=== PATIENT | female | born 1995 | race Caucasian/White ===

== ENCOUNTER 2017-02-07 17:23 | Inpatient (IN) ==
[2017-02-07] MEDS ORDERED: Metoclopramide 10 MG/2 ML VIAL IVP ONE (19:12)
[2017-02-07] MEDS ORDERED: 0.9 % Sodium Chloride 1,000 ML IVC ONE ×2 (19:12→21:19)
[2017-02-07] MEDS ORDERED: Ketorolac 15 MG/ML VIAL IVP ONE (19:14)
--- NOTE | 2017-02-07 19:41 | Emergency Department Note ---
Disposition Clinical Impression: Meningitis Headache Qualifiers: Headache type: unspecified Headache chronicity pattern: acute headache Intractability: not intractable Qualified Code(s): R51 - Headache Acute cystitis Qualifiers: Hematuria presence: without hematuria Qualified Code(s): N30.00 - Acute cystitis without hematuria Disposition: Admitted As Inpatient Condition: Fair General Adult HPI - General Chief complaint: ED Headache Stated complaint: DOW,BLISTERS HANDS AND FEET Time Seen by Provider: 02/07/17 18:46 Source: patient Limitations: no limitations Nursing Notes Reviewed: Yes Vital Signs Reviewed: Yes - History of Present Illness HPI Narrative: Patient's 21-year-old female has no visual migraines. She presents to the emergency department after having worsening headaches over the last 2-4 weeks. She states that over the last 2 days, her migraines gotten worse. She describes it the same in quality as it has been in the past and localizes it to them for region. She states that she is also having photophobia. She describes the pain as sharp. She has not taken anything for her symptoms. She is also complaining of some blisters on her palmar surfaces of her hands or feet. 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 Pain Scale: 9 - Related Data Home Medications Medication Instructions Recorded Confirmed No Known Home Drugs 02/07/17 02/07/17 Allergies Allergy/AdvReac Type Severity Reaction Status Date / Time No Known Allergies Allergy Verified 02/07/17 17:32 All systems ED: reviewed and negative except as stated. Constitutional: Denies: fever, chills Eyes: Denies: eye pain, vision change ENT ED: Denies: throat pain Cardiovascular: Denies: chest pain Respiratory: Denies: cough, dyspnea, wheezes Gastrointestinal: Denies: abdominal pain, nausea, vomiting Genitourinary: Denies: urgency, dysuria, frequency Musculoskeletal: Denies: back pain, neck pain Integumentary: Reports: rash Neurological: Reports: headache Past Medical History - Past Medical History Medical history: Reports: diabetes Psychiatric history: Reports: anxiety, depression - Social History Smoking Status: Current every day smoker Smokeless Tobacco Status: No Alcohol use: Reports: none Drug use: Reports: none Physical Exam - General Limitations: no limitations General appearance: alert, other (Patient is a 21-year-old female who appears uncomfortable when laying in the bed.) - Head Head exam: atraumatic, normocephalic - Eye Eye exam: Present: EOMI. Absent: scleral icterus, conjunctival injection - ENT ENT exam: normal oropharynx, mucous membranes moist - Neck Neck exam: Present: trachea midline, tenderness. Absent: meningismus - Chest Chest inspection: Present: normal inspection, symmetric chest wall rise - Respiratory Respiratory exam: Present: wheezes. Absent: respiratory distress - Cardiovascular Cardiovascular exam: Present: regular rate, normal rhythm, normal heart sounds - Abdominal Exam Abdominal exam: Present: soft, Non-Tender. Absent: distention, guarding, rebound, rigidity - Neurological Exam Neurological exam: Present: alert, oriented X3, CN II-XII intact, other ( Negative Brudzinski's) - Psychiatric Psychiatric exam: Present: anxious - Skin Skin exam: Present: warm, dry, intact, rash (Macular rash on the palmar surfaces of the hands and feet. No petechia) Course Course Narrative: This is a 21-year-old male with a past medical history of migraines who presents to the emergency department with 2 day history of a worsening headache as well as complaint of rash on the palmar surfaces of her hands and feet. At this time, my biggest concern for this patient has meningitis as she has a repeat temperature of 100.3 as well as a rash on the palmar surfaces of the hands and feet. The patient has a negative Brudzinski sign, has a migraine different in quality of her normal migraines by being temporal in nature. However, there is some concern that this current migraine is more severe than ones in the past. This time, I will order a CT scan of the head without contrast, provide this patient with a migraine cocktail using Benadryl, Reglan, IV fluids, 15 mg IV Toradol. I will also obtain a CBC, BMP, urinalysis and urine preg. Head CT 02/07/17 19:11 IMPRESSION: No acute intracranial abnormality. D/ / Tino Leon MD / Tino Leon MD Interpreting Provider: Tino Leon MD Vital Signs Temperature 98.8 F 02/07/17 17:29 Pulse Rate 91 02/07/17 17:29 Respiratory Rate 18 02/07/17 17:29 Blood Pressure 134/84 02/07/17 17:29 O2 Sat by Pulse Oximetry 99 02/07/17 17:29 Temperature 100.3 F 02/07/17 20:35 Pulse Rate 79 02/07/17 22:51 Respiratory Rate 16 02/07/17 22:51 Blood Pressure 115/71 02/07/17 22:51 O2 Sat by Pulse Oximetry 100 02/07/17 22:51 Oxygen Delivery Oxygen Delivery Room Air - Reevaluation(s) Reevaluation #1: Patient's head CT was negative. Patient's lumbar puncture came back positive for total nucleated cells with a value of 27 and an elevated protein. At this time, I will admit this patient for meningitis. I suspect it is most likely viral, however I will treat her appropriately for bacterial meningitis pending CSF cultures. Blood cultures have also been obtained. I have given this patient vancomycin and Rocephin. This patient also has a urinary tract infection, but this will be covered by the Rocephin. I have also started acyclovir IV to treat her for viral meningitis as well. I spoken to the hospitalist and he agrees to accept this admission at this time. I have also discussed with the patient and lab results. Her headache is been improved with use of a migraine cocktail as well as Fioricet. Patient is currently hemodynamically stable at this time. Time: 22:30 Vital Signs Temperature 98.8 F 02/07/17 17:29 Pulse Rate 91 02/07/17 17:29 Respiratory Rate 18 02/07/17 17:29 Blood Pressure 134/84 02/07/17 17:29 O2 Sat by Pulse Oximetry 99 02/07/17 17:29 Temperature 100.3 F 02/07/17 20:35 Pulse Rate 79 02/07/17 22:51 Respiratory Rate 16 02/07/17 22:51 Blood Pressure 115/71 02/07/17 22:51 O2 Sat by Pulse Oximetry 100 02/07/17 22:51 Oxygen Delivery Oxygen Delivery Room Air Medical Decision Making - Lab Data Result diagrams: 02/07/17 20:37 02/07/17 20:37 Lab Results 02/07/17 02/07/17 02/07/17 Range/Units 20:34 20:34 20:37 WBC 12.0 H (4.3-11.1) K/mcL RBC 5.01 H (3.82-4.97) M/mcL Hgb 14.7 (11.5-15.4) g/dL Hct 45.2 H (35.3-44.9) % MCV 90.2 (83.0-100.0) fL MCH 29.3 (28.0-33.3) pg MCHC 32.5 (31.6-35.5) g/dL RDW 12.8 (11.5-14.5) % Plt Count 231 (140-400) K/mcL MPV 12.1 (9.4-12.4) fL Immature Gran % 0.4 (0-4) % Seg Neutrophils % 78.0 % Lymphocytes % 14.1 % Monocytes % 5.7 % Eosinophils % 1.5 % Basophils % 0.3 % Neutrophils # 9.4 H (1.6-8.9) K/mcL Lymphocytes # 1.7 (0.6-4.6) K/mcL Monocytes # 0.7 (0.0-1.3) K/mcL Eosinophils # 0.2 (0.0-0.6) K/mcL Basophils # 0.0 (0.0-0.2) K/mcL Sodium (136-145) mEq/L Potassium (3.5-4.5) mEq/L Chloride (98-109) mEq/L Carbon Dioxide (19-29) mEq/L BUN (7-20) mg/dL Creatinine (0.57-1.11) mg/dL Est GFR ( Amer) (> 60) Est GFR (Non-Af Amer) (> 60) BUN/Creatinine Ratio (6-26) Glucose (70-99) mg/dL Calculated Osmolality (280-300) Calcium (8.6-10.8) mg/dL Urine Color Yellow (Yellow) Urine Clarity Cloudy A (Clear) Urine pH 7.0 (5.0-8.0) pH Units Ur Specific [place] 1.026 H (1.010-1.025) Urine Protein Negative (Neg-Trace) mg/dL Urine Glucose (UA) Normal (Normal) mg/dL Urine Ketones Negative (Negative) mg/dL Urine Blood Negative (Negative) Urine Nitrite Positive A (Negative) Urine Bilirubin Negative (Negative) Urine Urobilinogen Normal (Normal) mg/dL Ur Leukocyte Esterase Moderate H (Negative) Urine Microscopic RBC 5-15 H (0-3) per hpf Urine Microscopic WBC 5-15 H (0-3) per hpf Ur Squamous Epith Cells Many H (None-Few) per lpf Ur Renal Epithelial Cell Few (None-Few) per hpf Urine Bacteria Many H (None-Few) per hpf Hyaline Casts Few (None-Few) per lpf Ur Culture Indicated? YES A (NO) Urine Test Negative (Negative) CSF Volume mL CSF Appearance (Clear) CSF Color (Colorless) CSF RBC (0.000 - 0.002) M/mcL CSF Tot Nucleated Cells (0-5) TNC/mcL CSF Seg Neutrophils % CSF Band Neutrophils % CSF Lymphocytes % % CSF Monocytes % % CSF Eosinophils % CSF Basophils % CSF Other Cells % CSF Glucose (40-70) mg/dL CSF Xanth Comm (Not Observe) CSF Total Protein (15-45) mg/dL 02/07/17 02/07/17 Range/Units 20:37 21:04 WBC (4.3-11.1) K/mcL RBC (3.82-4.97) M/mcL Hgb (11.5-15.4) g/dL Hct (35.3-44.9) % MCV (83.0-100.0) fL MCH (28.0-33.3) pg MCHC (31.6-35.5) g/dL RDW (11.5-14.5) % Plt Count (140-400) K/mcL MPV (9.4-12.4) fL Immature Gran % (0-4) % Seg Neutrophils % % Lymphocytes % % Monocytes % % Eosinophils % % Basophils % % Neutrophils # (1.6-8.9) K/mcL Lymphocytes # (0.6-4.6) K/mcL Monocytes # (0.0-1.3) K/mcL Eosinophils # (0.0-0.6) K/mcL Basophils # (0.0-0.2) K/mcL Sodium 137 (136-145) mEq/L Potassium 3.9 (3.5-4.5) mEq/L Chloride 101 (98-109) mEq/L Carbon Dioxide 22 (19-29) mEq/L BUN 12 (7-20) mg/dL Creatinine 0.79 (0.57-1.11) mg/dL Est GFR ( Amer) > 60 (> 60) Est GFR (Non-Af Amer) > 60 (> 60) BUN/Creatinine Ratio 15 (6-26) Glucose 76 (70-99) mg/dL Calculated Osmolality 283 (280-300) Calcium 10.4 (8.6-10.8) mg/dL Urine Color (Yellow) Urine Clarity (Clear) Urine pH (5.0-8.0) pH Units Ur Specific [place] (1.010-1.025) Urine Protein (Neg-Trace) mg/dL Urine Glucose (UA) (Normal) mg/dL Urine Ketones (Negative) mg/dL Urine Blood (Negative) Urine Nitrite (Negative) Urine Bilirubin (Negative) Urine Urobilinogen (Normal) mg/dL Ur Leukocyte Esterase (Negative) Urine Microscopic RBC (0-3) per hpf Urine Microscopic WBC (0-3) per hpf Ur Squamous Epith Cells (None-Few) per lpf Ur Renal Epithelial Cell (None-Few) per hpf Urine Bacteria (None-Few) per hpf Hyaline Casts (None-Few) per lpf Ur Culture Indicated? (NO) Urine Test (Negative) CSF Volume 6.0 mL CSF Appearance Clear (Clear) CSF Color Colorless (Colorless) CSF RBC < 0.002 (0.000 - 0.002) M/mcL CSF Tot Nucleated Cells 27 H* (0-5) TNC/mcL CSF Seg Neutrophils 12.0 % CSF Band Neutrophils % Test Not Performed CSF Lymphocytes % 76.0 % CSF Monocytes % 12.0 % CSF Eosinophils % Test Not Performed CSF Basophils % Test Not Performed CSF Other Cells % Test Not Performed CSF Glucose 52 (40-70) mg/dL CSF Xanth Comm Not Observed (Not Observe) CSF Total Protein 53 H (15-45) mg/dL Critical Care Time Critical Care Time: Yes Total Critical Care Time: 40 Attestation: Critical care performed: Time is exclusive of separately billable procedures. Time includes: direct patient care, patient reassessment, coordination of patient care, interpretation of data (laboratory data, radiology data, and respiratory data), review of patient's medical records, medical consultation and documentation of patient care. Procedures included in critical care time: Procedures excluded from critical care time: Lumbar puncture Attestation Statement - Attestation Attestation: I, Joaquín Back MD, personally evaluated this patient and discussed their management with the resident physician. I reviewed the resident's note and agree with the documented findings, medical decision making, and plan of care. 21-year-old female presents to the emergency department with a complaint of severe headache which started earlier today. She states it started in the back of her head and then moved to the front bilaterally. Now it is mostly in the top of the head and forehead and down into the face bilaterally. She does complain of photophobia. She complains of nausea but no vomiting. She does have a history of migraine headaches but states she has never had a headache this bad and that this is different from her migraines. No definite fever but she states that she has had chills. She also complains of a rash on her palms and soles that started about 2 days ago. The rash is painful. No known exposure. No cough or chest pain or shortness of breath. No stiff neck. No blurred vision or double vision. No difficulty with speech or swallowing or balance. No cough or chest pain or shortness of breath. No abdominal pain. On examination patient is a well-developed obese young female in no acute distress. She is alert and oriented 3 no cyanosis or diaphoresis. HEENT normal. Neck supple and nontender with no lymphadenopathy and no meningismus. Touches chin to chest without discomfort. Breath sounds are clear and equal bilaterally. Heart regular with a mild tachycardia. Abdomen is soft and nontender with normal bowel sounds. No gross focal neurological deficits. Patient does have a tender erythematous macular rash on the palms and soles. No petechial rash. No blisters or vesicles. Labs reviewed. Patient does have a UTI. Head CT negative. Lumbar puncture was performed by Dr. Mantilla under my direct supervision. Spinal fluid was positive with 27 wbc's. 76% lymphocytes, 12% monocytes, 12% segs. Patient likely has a viral meningitis. The rash on her palms and soles appears viral. IV antibiotics and antiviral initiated and patient will be admitted to the hospital until CSF cultures return. The hospitalist, Dr. Gomez, was consulted and accepted admission of the patient.
[2017-02-07 20:45] LABS: Basophils % 0.3 %; Eosinophils # 0.2 K/mcL (0.0-0.6); Eosinophils % 1.5 %; Hematocrit 45.2 % (35.3-44.9); Hemoglobin 14.7 g/dL (11.5-15.4); Immature Granulocytes % 0.4 % (0-4); Lymphocytes # 1.7 K/mcL (0.6-4.6); Lymphocytes % 14.1 %; Mean Corpuscular HGB Conc 32.5 g/dL (31.6-35.5); Mean Corpuscular Hemoglobin 29.3 pg (28.0-33.3); Mean Corpuscular Volume 90.2 fL (83.0-100.0); Mean Platelet Volume 12.1 fL (9.4-12.4); Monocytes # 0.7 K/mcL (0.0-1.3); Monocytes % 5.7 %; Neutrophils # 9.4 K/mcL (1.6-8.9); Platelet Count 231 K/mcL (140-400); Red Blood Count 5.01 M/mcL (3.82-4.97); Red Cell Distribution Width 12.8 % (11.5-14.5)
[2017-02-07 20:46] LABS: Bilirubin,Urine Negative (Negative); Blood,Urine Negative (Negative); Clarity,Urine Cloudy (Clear); Color,Urine Yellow (Yellow); Glucose,Urine (UA) Normal (Normal); Ketones,Urine Negative (Negative); Leukocyte Esterase,Urine Moderate (Negative); Nitrite,Urine Positive (Negative); Protein,Urine Negative (Neg-Trace); Specific Gravity,Urine 1.026 (1.010-1.025); Urobilinogen,Urine Normal (Normal)
[2017-02-07 20:47] LABS: Bacteria,Urine Many per hpf (None-Few); Squamous Epithelial Cell,Urine Many per lpf (None-Few)
[2017-02-07 20:58] LABS: BUN/Creatinine Ratio 15 (6-26); Blood Urea Nitrogen 12 mg/dL (7-20); Calcium 10.4 mg/dL (8.6-10.8); Carbon Dioxide 22 mEq/L (19-29); Chloride 101 mEq/L (98-109); Glucose 76 mg/dL (70-99); Osmolality,Calculated 283 (280-300); Sodium 137 mEq/L (136-145); eGFR For African Americans > 60 (> 60); eGFR For Non-African Americans > 60 (> 60)
[2017-02-07 21:00] LABS: Potassium 3.9 mEq/L (3.5-4.5)
[2017-02-07] MEDS ORDERED: Acetaminophen/Butalbital/CaffeineTABLET PO ONE (21:15)
[2017-02-07 21:16] LABS: Hyaline Casts,Urine Few per lpf (None-Few); Renal Epithelial Cells,Urine Few per hpf (None-Few)
[2017-02-07 21:55] LABS: Glucose,CSF 52 mg/dL (40-70); Total Protein,CSF 53 mg/dL (15-45)
[2017-02-07 21:58] LABS: Red Blood Cell,CSF < 0.002 M/mcL
[2017-02-07] MEDS ORDERED: Acyclovir 500 MG in D5% in Water 100 ML IVPB ONE (22:18)
[2017-02-07 22:24] LABS: Appearance,CSF Clear (Clear)
[2017-02-07] MEDS ORDERED: Vancomycin 2,000 MG in D5% in Water 500 ML IVPB SCH (23:00)
[2017-02-08] MEDS: Vancomycin 1,500 MG in D5% in Water 250 ML IVPB SCH ×2 (00:14→07:36)
[2017-02-08] MEDS ORDERED: Ibuprofen 400 MG TABLET PO PRN (01:02)
[2017-02-08] MEDS ORDERED: Naloxone 0.4 MG/ML INJ IVP PRN (01:02)
[2017-02-08] MEDS ORDERED: Ondansetron 4 MG/2 ML VIAL IVP PRN (01:02)
--- NOTE | 2017-02-08 01:21 | Internal Med History&Physical ---
Date of Encounter: 02/08/17 Time of Encounter: 00:45 Assessment and Plan (1) Meningitis Current visit: Yes Status: Acute 1. Will continue Vancomycin, high dose Rocephin, and IV Acyclovir. 2. Will send CSF for HSV PCR, Enterovirus PCR, and follow bacterial culture. 3. I suspect this is viral meningitis but will continue antibiotics until culture results available. (2) Acute cystitis Current visit: Yes Status: Acute 1. Will follow urine culture. 2. Continue antibiotics as above and adjust as needed. 3. IVF hydration. Qualifiers: Hematuria presence: without hematuria Qualified Code(s): N30.00 - Acute cystitis without hematuria (3) DVT prophylaxis Current visit: Yes Status: Acute 1. Heparin SQ. Internal Medicine - H&P: HPI Chief complaint: headache, neck pain, fever Admitted From: Emergency Dept Plans for Post Hospital Care: Home History of present illness: Ms. Metz is a year old female who has been battling a headache for last 2-3 days. She usually has migraine headaches a few times per month. She developed a headache the other day and thought it was a typical migraine. However, as the next 24-48 hours progressed, her headache became more severe and included neck pain and stiffness. She therefore came to the ER where she underwent CT imaging and lumbar puncture suggesting meningitis. She was subsequently admitted to the hospitalist service. Upon my assessment of the patient, she appears stable and in no significant distress. She does complain of mild headache and neck pain, but it is improved. She admits to having had some fevers and chills but no body aches. She denies any diarrhea, but she had some vomiting. She denies any known ill contacts. She denies any history of oral or genital herpes. She denies any mosquito bites, tick bites, or any exotic pet exposure. Past Med Surg Social Fam HX - Past Medical History Attestation: Yes The following information was validated with the patient. Source: patient, old records reviewed Medical history: migraine Psychiatric history: anxiety, depression - Past Surgical History Surgical History: cholecystectomy, other (ureteral re-implantation) - Social History Smoking Status: Current every day smoker Smokeless Tobacco Status: No Alcohol use: none Drug use: none Current living situation: Home Activity Level: Independent ambulation - Family History Mother Living Status: Still Living Hx Family Endocrine Disorder: Yes (diabetes) Father History Unknown: Yes Internal Medicine - H&P: Meds No Known Home Drugs 02/07/17 [History] 3 Allergy/AdvReac Type Severity Reaction Status Date / Time No Known Allergies Allergy Verified 02/07/17 17:32 - Constitutional Constitutional: chills, fever(s), no night sweats - EENT Eyes: photophobia, no change in vision, no decreased night vision Ears: no ear pain, no tinnitus Nose, mouth and throat: no nasal congestion, no sinus pressure, no sore throat - Cardiovascular Cardiovascular ROS IM: no chest pain, no diaphoresis, no dyspnea, no dyspnea on exertion - Respiratory Respiratory: no cough, no hemoptysis, no chest congestion - Gastrointestinal Gastrointestinal: nausea, vomiting, no abdominal pain, no diarrhea - Genitourinary Genitourinary: dysuria, no flank pain, no hematuria - Musculoskeletal Musculoskeletal ROS IM: back pain, neck pain, stiffness, no arthralgias - Integumentary Integumentary IM: rash, no jaundice - Neurological Neurological ROS: headache(s), no disequilibrium, no dizziness, no focal weakness, no weakness - Psychiatric Psychiatric: no anxiety, no depression - Endocrine Endocrine IM: no polydipsia, no polyuria - Hematologic/Lymphatic Hematologic/Lymphatic: no easy bruising, no lymphadenopathy - Allergic/Immunologic Allergic/Immunologic: no wheezing, no GI upset with certain foods - Constitutional Vitals: Temp Pulse Resp BP Pulse Ox 98.4 F 79 17 99/58 100 02/08/17 00:11 02/07/17 22:51 02/07/17 23:49 02/07/17 23:49 02/07/17 22:51 General appearance: Present: cooperative, mild distress, A&O X 3, pleasant, answers questions appropriately - Head Head exam: Present: atraumatic, normal inspection - Expanded Head Exam Head exam expanded: Absent: abrasion, contusion, general tenderness - Eye Eye exam: Present: EOMI, normal appearance, PERRL. Absent: scleral icterus Pupils: Present: normal accommodation - ENT ENT exam: Present: mucous membranes dry, normal exam - Neck Neck exam general surgery: Present: full ROM, tenderness (neck a little stiff but full ROM). Absent: thyromegaly - Respiratory Respiratory exam: Present: CTAB. Absent: chest wall tenderness, rales, respiratory distress, rhonchi, wheezes - Cardiovascular Cardiovascular exam: Present: RRR, +S1, +S2. Absent: diastolic murmur, systolic murmur - GI/Abdominal GI/Abdominal exam: Present: normal bowel sounds, soft. Absent: hepatomegaly, splenomegaly, tenderness - Extremities Exam Extremities exam: Present: full ROM, warm, radial pulses palpable and symmetrical. Absent: calf tenderness, joint swelling, pedal edema - Back Exam Back exam: Present: normal inspection. Absent: CVA tenderness (L), CVA tenderness (R), tenderness - Neurological Exam Neurological exam: Present: alert, CN II-XII intact, oriented X3, no focal deficits, strengths equal and symetr throughout Additional comments: Negative Kernig and Negative Brudzinski signs - Psychiatric Psychiatric exam: Present: normal affect, normal mood - Skin Skin exam: Present: dry, warm Additional comments: subtle macular rash on her extremities; no vesicles Internal Med - H&P Results - Labs CBC & Chem 7: 02/07/17 20:37 02/07/17 20:37 Labs: CSF studies pertinent for total nucleated cells 27, lymphocytes 76%, monocytes 12%, glucose 52, and elevated protein of 53 - Diagnostic Studies CT scan - head Additional comments: Report reviewed -- negative
[2017-02-08 01:28] LABS: Basophils % 0.4 %; Eosinophils # 0.1 K/mcL (0.0-0.6); Hematocrit 34.9 % (35.3-44.9); Immature Granulocytes % 0.2 % (0-4); Lymphocytes # 1.7 K/mcL (0.6-4.6); Lymphocytes % 18.2 %; Mean Corpuscular Hemoglobin 29.5 pg (28.0-33.3); Mean Corpuscular Volume 89.5 fL (83.0-100.0); Mean Platelet Volume 11.2 fL (9.4-12.4); Monocytes # 0.5 K/mcL (0.0-1.3); Monocytes % 5.5 %; Neutrophils # 7.1 K/mcL (1.6-8.9); Platelet Count 222 K/mcL (140-400); Red Cell Distribution Width 12.7 % (11.5-14.5); Segmented Neutrophils % 74.7 %
[2017-02-08 01:29] LABS: Hemoglobin 11.5 g/dL (11.5-15.4)
[2017-02-08 01:38] LABS: Alanine Aminotransferase 8 Units/L (0-55); Albumin 3.1 g/dL (3.5-5.0); Alkaline Phosphatase 61 Units/L (38-126); Aspartate Amino Transferase 11 Units/L (5-34); BUN/Creatinine Ratio 18 (6-26); Bilirubin,Total 0.5 mg/dL (0.2-1.2); Blood Urea Nitrogen 12 mg/dL (7-20); Carbon Dioxide 20 mEq/L (19-29); Chloride 108 mEq/L (98-109); Globulin 3.2 g/dL (2.4-3.5); Glucose 148 mg/dL (70-99); Magnesium 1.8 mg/dL (1.7-2.2); Osmolality,Calculated 287 (280-300); Potassium 3.6 mEq/L (3.5-4.5); Sodium 137 mEq/L (136-145); Total Protein 6.3 g/dL (6.0-8.3); eGFR For African Americans > 60 (> 60); eGFR For Non-African Americans > 60 (> 60)
[2017-02-08 01:39] LABS: Calcium 8.3 mg/dL (8.6-10.8)
[2017-02-08] MEDS ORDERED: Vancomycin 1,500 MG in D5% in Water 250 ML IVPB SCH (02:00)
[2017-02-08] MEDS: 0.9 % Sodium Chloride w KCl 20 MEQ/1,000 ML MLS IVC SCH ×3 (04:05→23:19)
[2017-02-08] MEDS: *HR* Heparin 5,000 UNIT/ML VIAL SQ SCH ×3 (06:15→18:18)
[2017-02-08] MEDS: Acetaminophen/Butalbital/CaffeineTABLET PO PRN ×2 (06:16→14:08)
[2017-02-08] MEDS: Acetaminophen 325 MG TABLET PO PRN ×2 (07:55→20:47)
[2017-02-08] MEDS ORDERED: *HR* HYDROcodone/Acet 5/325 mg TABLET PO PRN (07:58)
[2017-02-08] MEDS ORDERED: ACYCLOVIR IVPB SCH (08:00)
[2017-02-08] MEDS ORDERED: D5 IVPB SCH (08:00)
[2017-02-08] MEDS ORDERED: WATER IVPB SCH (08:00)
--- NOTE | 2017-02-08 08:04 | Internal Med Progress Note ---
Date of Encounter: 02/08/17 Time of Encounter: 08:02 - Assessment and plan (1) Meningitis Current Visit: Yes Status: Acute (2) Acute cystitis Current Visit: Yes Status: Acute Qualifiers: Hematuria presence: without hematuria Qualified Code(s): N30.00 - Acute cystitis without hematuria (3) Hyperglycemia Current Visit: Yes Status: Acute (4) DVT prophylaxis Current Visit: Yes Status: Acute - Subjective Interval history: Ms. Metz is a 21 year old female who has past medical history significant for chronic headaches. She has been battling a headache for last 2-3 days which is the more intense than her usual headaches.. She usually has migraine headaches a few times per month. In the ER she had CT head and lumbar puncture. CT head was negative for bleed while lumbar puncture showed 37 neutrophils but normal glucose and elevated protein more consistent with viral meningitis. The PCR is pending though. Infectious disease was consulted and she has been taken off all antibiotics. However she does have UTI for which Rocephin was left. As I examined her her nuchal rigidity has resolved though she is still complaining of headache and does not want to take oral medication therefore she will be switched to IV Dilaudid 1 mg every 3 hours when necessary. Later he noted that patient seems quite comfortable and actually has been ambulating. Once her culture and PCR report is available she can be safely discharged to home. Blood sugar noted elevated and since she has family history of diabetes.. She is complaining of bilateral lower extremity numbness and rash. She is complaining of lower extremity rash and numbness but No rash on examination - Constitutional Vitals: Temp Pulse Resp BP Pulse Ox 98.6 F 73 16 106/53 99 02/08/17 07:20 02/08/17 07:20 02/08/17 07:20 02/08/17 07:20 02/08/17 07:20 General appearance: Present: cooperative, mild distress, A&O X 3, pleasant, answers questions appropriately - Head Head exam: Present: atraumatic, normocephalic - Eye Eye exam: Present: PERRL, conjuntiva pink, sclera anicteric Pupils: Present: PERRL - Neck Neck exam general surgery: Present: supple, trachea midline. Absent: lymphadenopathy - Respiratory Respiratory exam: Present: CTAB. Absent: accessory muscle use, rales, rhonchi, wheezes - Cardiovascular Cardiovascular exam: Present: RRR, +S1, +S2. Absent: diastolic murmur, gallop, rubs, systolic murmur - GI/Abdominal GI/Abdominal exam: Present: normal bowel sounds, soft, no peritoneal signs. Absent: distended, tenderness - Extremities Exam Extremities exam: Present: warm, radial pulses palpable and symmetrical. Absent : calf tenderness, cyanotic, pedal edema - Neurological Exam Neurological exam: Present: CN II-XII intact, oriented X3, no focal deficits. Absent: pronater drift, facial droop, speech deficit - Skin Skin exam: Present: dry, intact Internal Medicine: Result - Labs CBC & Chem 7: 02/08/17 00:27 02/08/17 00:27 Consult Discharge Plan - Plan Referrals: Shahana Garcia [employer] [Advanced Practice Nurse] - 02/14/17 11:00 am (Please fill out and take with you your new patient packet. SHow up 30 mins early for your appointment. Take your Ins. cards, picture id, and all medications in the bottles to your appointment. If you need to cancel please call [phone] to cancel within 24 hours of your visit. )
--- NOTE | 2017-02-08 14:03 | Infectious Disease Consult ---
Date of Encounter: 02/08/17 Time of Encounter: 13:57 Assessment and Plan (1) Leukocytosis Status: Acute Assessment and plan: WBC elevated at 12 on admission. Likely secondary to meningitis. Resolved. Qualifiers: Leukocytosis type: unspecified Qualified Code(s): D72.829 - Elevated white blood cell count, unspecified (2) Meningitis Status: Acute Assessment and plan: Clinical picture consistent with meningitis. Causative organism unclear, but likely viral. CSF TNC 27 with 76% lymphocytes. CSF gram stain and culture preliminarily negative. Discontinue isolation. Discontinue Vancomycin. Discontinue acyclovir. Continue Rocephin for UTI coverage, but decrease to 1 gram PO Q24H. Continue pain management and supportive care. (3) Headache Status: Acute Assessment and plan: Secondary to meningitis. Continue supportive care as outlined by the primary team. Qualifiers: Headache type: unspecified Headache chronicity pattern: acute headache Intractability: not intractable Qualified Code(s): R51 - Headache (4) Acute cystitis Status: Acute Assessment and plan: Urinalysis indicative of pyuria. Suprapubic pain with palpation and right lower back pain noted on exam. Continue Rocephin, but decrease dose to 1 gram daily. Await culture. De-escalate antibiotics if/when able. Duration of treatment depends on the clinical picture. Qualifiers: Hematuria presence: without hematuria Qualified Code(s): N30.00 - Acute cystitis without hematuria (5) Hyperglycemia Status: Acute Assessment and plan: Further workup and management per the primary team. (6) Rash Status: Acute Assessment and plan: Location: Bilateral hands and feet Improved per patient report. Likely secondary to viral illness. Unlikely H/F/M disease given the nature of the rash (no blisters, macular rash, etc.). Infectious Disease HPI - Data of Consult Patient: new to practice Consult date: 02/08/17 Requesting Physician: Sejal Schuster MD Primary Care Provider: PCP NONE - Consult Narrative Reason for consult: Meningitis History of present illness: Ms. Metz is a 21 year old female with a past medical history of anxiety, depression, and migraine headaches. The patient was admitted to the hospital February 07 for meningitis. We are consulted February 08 for further evaluation and treatment recommendations regarding meningitis. The patient's a 21-year-old now with past medical history as stated above. She reports that she has chronic migraine headaches that occur about 3 times a week for the past 3 years. She states that yesterday she developed a headache that started in the back of her head and came up to the front and behind her eyes. She states the pain was throbbing in nature and was not like her other headaches. She reports photophobia and nausea. She also reports a new onset of bilateral leg pain, right lower back pain, and a rash to the palms of her hands and her feet. Upon presentation to the emergency department, the patient had a low-grade fever and a mild leukocytosis with a white count of 12,000. Urinalysis was obtained that was positive for nitrites and leukocyte esterase and many bacteria, but also had many details cells. CT of the head was negative. The patient had a lumbar puncture that had 27 white cells with 76% lymphocytes. Glucose was 52 and protein was 53. She was started empirically on IV vancomycin, IV Rocephin, and acyclovir. She was admitted to the hospital for further evaluation and treatment. Since admission, the patient has remained afebrile and hemodynamically stable. Her white blood cell count has normalized. All other laboratory studies have been normal. CSF culture and Gram stain are preliminarily negative. My exam today, the patient states that overall she feels about the same. She denies any fevers or chills or rigors overnight. She denies any neck pain or stiffness. She states her headache is about the same as in the back of her head and goes up to the front behind her eyes and is throbbing in nature. She reports photophobia. [place] weakness or dizziness. She denies any congestion, earache, or sore throat. She denies any chest pain, shortness of breath, or cough. The patient continues to report a headache that has been uncontrolled by the pain medication regimen outlined by the hospitalist team. She states that she has not had any nausea and she's been able to eat okay. He denies any abdominal pain or urinary complaints. She continues to complain of right lower back pain. She states the rash to her palms and soles of her feet is improved. She states the rash was painful and flat and not itchy. She denies any any dysuria, but does report urinary frequency that she's had for several months. She denies any oral thrush or any other skin lesions. CC: Sejal Schuster MD Past Med Surg Social Fam HX - Past Medical History Attestation: Yes The following information was validated with the patient. Source: patient, old records reviewed, nursing notes reviewed Medical history: migraine Psychiatric history: anxiety, depression - Past Surgical History Surgical History: cholecystectomy, other (ureteral re-implantation) - Social History Smoking Status: Current every day smoker Packs per day: 1-2 Smokeless Tobacco Status: No Alcohol use: none Drug use: none Occupational status: employed Current living situation: Home - Independent Activity Level: Independent ambulation Recent Out of Country Travel Within the Last 8 Weeks: No Exposure or Possible Exposure to Illness During Travel: No - Family History Mother Living Status: Still Living Hx Family Endocrine Disorder: Yes (diabetes) Father History Unknown: Yes Infectious Disease-CN:Meds No Known Home Drugs 02/07/17 [History] 3 Allergy/AdvReac Type Severity Reaction Status Date / Time No Known Allergies Allergy Verified 02/07/17 17:32 All systems: reviewed and no additional remarkable complaints except as stated Exam - Constitutional Vitals: Temp Pulse Resp BP Pulse Ox 98.6 F 72 16 110/67 100 02/08/17 11:07 02/08/17 11:33 02/08/17 11:07 02/08/17 11:07 02/08/17 11:07 General appearance: cooperative, no acute distress, obese - Head Head exam: Present: atraumatic, normal inspection, normocephalic - Eye Eye exam: Present: EOMI, normal appearance, PERRL Pupils: Present: normal accommodation - ENT ENT exam: Present: mucous membranes moist - Neck Neck exam: Present: full ROM, normal inspection. Absent: lymphadenopathy, meningismus - Respiratory Respiratory exam: Present: CTAB. Absent: rales, respiratory distress, rhonchi, wheezes - Cardiovascular Cardiovascular exam: Present: RRR, +S1, +S2 - GI/Abdominal GI/Abdominal exam: Present: distended (obese), normal bowel sounds, soft, tenderness (suprapubic) - Extremities Exam Extremities exam: Present: normal inspection. Absent: joint swelling, pedal edema, tenderness - Back Exam Back exam: Present: CVA tenderness (R), normal inspection, paraspinal tenderness (Right lower back) - Neurological Exam Neurological exam: Present: alert, oriented X3, no focal deficits - Psychiatric Psychiatric exam: Present: normal affect, normal mood - Skin Skin exam: Present: dry, intact, normal color, warm Infectious Disease CN: Results - Labs CBC & Chem 7: 02/08/17 00:27 02/08/17 00:27 Cultures: Cultures 02/07/17 21:04 CSF Culture - Preliminary Cerebral Spinal Fluid Serology: Serology 02/07/17 02/07/17 02/07/17 Range/Units 21:04 20:34 20:34 Urine Color Yellow (Yellow) Urine Clarity Cloudy A (Clear) Urine pH 7.0 (5.0-8.0) pH Units Ur Specific [place] 1.026 H (1.010-1.025) Urine Protein Negative (Neg-Trace) mg/dL Urine Glucose (UA) Normal (Normal) mg/dL Urine Ketones Negative (Negative) mg/dL Urine Blood Negative (Negative) Urine Nitrite Positive A (Negative) Urine Bilirubin Negative (Negative) Urine Urobilinogen Normal (Normal) mg/dL Ur Leukocyte Esterase Moderate H (Negative) Urine Microscopic RBC 5-15 H (0-3) per hpf Urine Microscopic WBC 5-15 H (0-3) per hpf Ur Squamous Epith Cells Many H (None-Few) per lpf Ur Renal Epithelial Cell Few (None-Few) per hpf Urine Bacteria Many H (None-Few) per hpf Hyaline Casts Few (None-Few) per lpf Ur Culture Indicated? YES A (NO) Urine Test Negative (Negative) CSF Volume 6.0 mL CSF Appearance Clear (Clear) CSF Color Colorless (Colorless) CSF RBC < 0.002 (0.000 - 0.002) M/mcL CSF Tot Nucleated Cells 27 H* (0-5) TNC/mcL CSF Seg Neutrophils 12.0 % CSF Band Neutrophils % Test Not Performed CSF Lymphocytes % 76.0 % CSF Monocytes % 12.0 % CSF Eosinophils % Test Not Performed CSF Basophils % Test Not Performed CSF Other Cells % Test Not Performed CSF Glucose 52 (40-70) mg/dL CSF Xanth Comm Not Observed (Not Observe) CSF Total Protein 53 H (15-45) mg/dL Consult Discharge Plan - Plan Referrals: Shahana Garcia SHAKE FEEDER [Advanced Practice Nurse] - 02/14/17 11:00 am (Please fill out and take with you your new patient packet. SHow up 30 mins early for your appointment. Take your Ins. cards, picture id, and all medications in the bottles to your appointment. If you need to cancel please call [phone] to cancel within 24 hours of your visit. )
[2017-02-08] MEDS ORDERED: *HR* HYDROmorphone (PF) 1 MG/ML SYRINGE IVP PRN (15:42)
[2017-02-08] MEDS ORDERED: Acyclovir 800 MG in D5% in Water 250 ML IVPB SCH (16:00)
[2017-02-08] MEDS: Ketorolac 30 MG/ML VIAL IVP PRN (18:12)
[2017-02-09] MEDS ORDERED: Furosemide 40 MG/4 ML VIAL IVP ONE (00:15)
[2017-02-09] MEDS: *HR* Heparin 5,000 UNIT/ML VIAL SQ SCH (05:23)
[2017-02-09] MEDS: 0.9 % Sodium Chloride w KCl 20 MEQ/1,000 ML MLS IVC SCH (07:44)
[2017-02-09] MEDS: Ketorolac 30 MG/ML VIAL IVP PRN (07:44)
[2017-02-09 11:43] VITALS: BP 119/75
--- NOTE | 2017-02-09 11:55 | Discharge Summary ---
Date of Encounter: 02/09/17 Time of Encounter: 11:55 - Discharge Diagnosis (1) Meningitis due to coxsackie virus Priority: Primary Status: Suspected (2) Acute cystitis Priority: Primary Status: Acute Qualifiers: Hematuria presence: without hematuria Qualified Code(s): N30.00 - Acute cystitis without hematuria (3) Headache Priority: Secondary Status: Chronic Qualifiers: Headache type: tension-type Headache chronicity pattern: chronic headache Intractability: not intractable Qualified Code(s): G44.229 - Chronic tension -type headache, not intractable (4) Rash Priority: Secondary Status: Acute (5) Tobacco abuse Priority: Secondary Status: Chronic - Discharge Medications Prescriptions: Ibuprofen [Motrin] 400 mg PO Q6HR PRN #40 tab PRN Reason: Fever HYDROcodone/Acet 5/325 mg [[place] 5-325 mg] 1 tab PO Q6H PRN #12 tab PRN Reason: Headache Nitrofurantoin Monohyd/M-Cryst [Macrobid 100 mg Capsule] 100 mg PO BID #6 capsule Home Medications: HYDROcodone/Acet 5/325 mg [[place] 5-325 mg] 1 tab PO Q6H PRN #12 tab 02/09/17 [Rx ] Ibuprofen [Motrin] 400 mg PO Q6HR PRN #40 tab 02/09/17 [Rx] Nitrofurantoin Monohyd/M-Cryst [Macrobid 100 mg Capsule] 100 mg PO BID #6 capsule 02/09/17 [Rx] Allergies/Adverse Reactions: 3 Allergy/AdvReac Type Severity Reaction Status Date / Time No Known Allergies Allergy Verified 02/07/17 17:32 - Notes to Outpatient Provider May benefit from sleep study. Date of admission: 02/08/17 01:02 Primary care physician: PCP NONE Consults: 02/08/17 07:57 Consult to Infectious Diseases [CONS] Routine Consulting Provider: Infectious Disease Suri Reason for Consult: Megningitis Time Notified: 07:58 Call Completed: No 02/08/17 16:41 Consult to Invasive Line Access Team [CONS] Routine Reason for Consult: limited IV access Line Type: EPIV Discharging clinician: Sina Horne Anticipated date of discharge: 02/09/17 - Patient Status Disposition: Home, Self-Care Condition: Good Functional capacity at discharge: independent ambulation Overall status at discharge: patient is progressing back to baseline - Discharge Instructions Follow Up With: Shahana Garcia TECHNICAL TRAINING COORDINATOR [Advanced Practice Nurse] - 02/14/17 11:00 am (Please fill out and take with you your new patient packet. SHow up 30 mins early for your appointment. Take your Ins. cards, picture id, and all medications in the bottles to your appointment. If you need to cancel please call [phone] to cancel within 24 hours of your visit. ) - Diet and Activity Activity: increase activity as tolerated Diet: advance to your usual diet Hospital course: Ms. Metz is a year old female with history of chronic headaches presented to ED with acute worsening of her headache pattern. She had associated neck pain and stiffness but no fever. She underwent LP in ED which was consistent with meningitis picture and she was subsequently admitted. Ms. Metz was admitted to [facility] with presumptive meningitis. She was started on IV abx and IV acyclovir. She was also noted to have UTI picture. She was seen by infectious disease service and meds adjusted for presumptive viral meningitis. She was given pain medication for her headache. On 02/09 her headache was still present but somewhat better. She had no fever and joint pain had improved. Her vitals were stable. She was felt ready for discharge home. Of note she states she has headache most days when she wakes up and has daytime somnolence as well. She may benefit from sleep study. - Time Spent with Patient Total time spent providing and/or coordinating discharge services: 42min - Constitutional Vitals: Temp Pulse Resp BP Pulse Ox 98.1 F 74 16 119/75 100 02/09/17 11:42 02/09/17 11:42 02/09/17 11:42 02/09/17 11:42 02/09/17 11:42 General appearance: Present: cooperative, A&O X 3, pleasant, answers questions appropriately - Head Head exam: Present: normocephalic - Eye Eye exam: Present: EOMI, conjuntiva pink - ENT ENT exam: Present: mucous membranes moist - Neck Neck exam general surgery: Absent: tenderness, nuchal rigidity - Respiratory Respiratory exam: Present: CTAB. Absent: rales, rhonchi, wheezes - Cardiovascular Cardiovascular exam: Present: RRR. Absent: tachycardia - GI/Abdominal GI/Abdominal exam: Present: soft. Absent: tenderness - Extremities Exam Extremities exam: Present: warm. Absent: tenderness - Neurological Exam Neurological exam: Present: alert, oriented X3 - Skin Skin exam: Present: warm. Absent: rash
[2017-02-09] MEDS ORDERED: Aminoglycoside Consult 1 EACH MC ONE (12:39)
[2017-02-10 10:16] LABS: HSV Source CSF
[2017-02-11 07:59] LABS: Enterovirus RNA Qual (PCR) NOT DETECTED
[2017-02-11 12:52] LABS: Borrelia burgdorferi Abs CSF 0.19 LIV (<=0.99)
== END 2017-02-09 12:40 | disposition home or self-care (01) | DRG 589 ==
LOC: 2NNU 17:23 → EMEROO 17:23 → 2NNU 02-08 → SUATTDRO 02-08 01:02
PROVIDERS: ADMIT Family Medicine; ATTEND Internal Medicine